=== PATIENT | male | born 1980 | race Caucasian/White ===

== ENCOUNTER 2018-02-14 15:39 | Outpatient (CLI) | payer OTHER ==
--- NOTE | 2018-02-14 20:32 | MRI ---
MRI LUMBAR SPINE WITHOUT IV CONTRAST: 02/14/18 HISTORY: Chronic low back pain for years. Other osteoarthritis of the spine, lumbar. COMPARISON: 03/30/16. FINDINGS: The retroperitoneal structures demonstrate a normal MRI appearance. The conus medullaris terminates at the level of the L1 vertebral body and has a normal appearance. Again noted is slight anterolisthesis of L3 on L4 with the degree of anterolisthesis unchanged from p rior exam. There is very slight retrolisthesis of L5 on S1. There again noted are combination of type I and II Modic changes at the C3-4 level. Schmorl's nodes a re seen in the lower thoracic vertebral bodies as well as the superior end plate of the L1 vertebral body. L1-2 level: There is no disc bulge or disc herniation. Central spinal canal and neural foramina are p atent. L2-3 level: There is no disc bulge or disc herniation. Central spinal canal and neural foramina are p atent. There are mild facet degenerative changes at this level. L3-4 level: There is loss of intervertebral disc height with slight anterolisthesis of L3 on L4. Ther e are moderate facet hypertrophic changes at this level. A mild broad based disc osteophyte complex w hich in combination with the anterolisthesis results in mild bilateral neural foraminal narrowing. Th ere is no narrowing of the central spinal canal. L4-5 level: There is loss of intervertebral disc height. There is a mild broad based disc osteophyte complex present. There are facet hypertrophic changes again seen bilaterally. Central spinal canal is patent. There is minimal bilateral neural foraminal narrowing greater on the left. L5-S1 level: There is loss of intervertebral disc height. There is a broad based disc osteophyte comp isabel with small central disc protrusion. Facet hypertrophic changes are noted. There is no significant narrowing of the central spinal canal. The neural foramina also appear patent at this level. There i s mild encroachment on the traversing left S1 nerve root within the left subarticular zones also stab le from prior study. IMPRESSION: Degenerative changes in the lumbar spine which have not progressed when compared to the prior study i n 2017. No high grade central canal or neural foraminal narrowing is present. POS: [facility]
== END 2018-02-14 15:40 | disposition home or self-care (01) ==
LOC: SCSMRI 15:39
PROVIDERS: ATTEND Family Medicine
DX: M47.896 Other spondylosis, lumbar region (principal)
CPT/HCPCS: 72148